=== PATIENT | female | born 2000 ===

== ENCOUNTER 2021-07-01 18:25 | Emergency (ER) | payer SELFPAY ==
[2021-07-01 20:06] VITALS: BP 126/69
--- NOTE | 2021-07-01 20:21 | Emergency Department Report ---
ED General Adult HPI - General Chief complaint: Skin/Abscess/Foreign Body Stated complaint: TAMPON WIPE STUCK Time Seen by Provider: 07/01/21 20:12 Source: patient Mode of arrival: Ambulatory Limitations: No Limitations - History of Present Illness Initial comments: 21-year-old female patient presents to the emergency department with complaints of a vaginal foreign body for 3 days. Patient states she ran out of tampons and attempted to recreate a tampon using a baby wipe. Patient attempted to extract the foreign body herself prior to arrival but was unsuccessful because she was unable to reach the object with her fingers. Denies fever, chills, abdominal pain, pelvic pain, vaginal bleeding, vaginal discharge. Denies all other complaints at this time. - Related Data Previous Rx's Medication Instructions Recorded Last Taken Type metroNIDAZOLE [Flagyl] 500 mg PO Q12HR 7 Days tab 07/01/21 Unknown Rx Allergies Allergy/AdvReac Type Severity Reaction Status Date / Time No Known Allergies Allergy Verified 07/01/21 20:06 ED Review of Systems ROS: Stated complaint: TAMPON WIPE STUCK Other details as noted in HPI Other: GENERAL: Negative for fever. CARDIOVASCULAR: Negative for chest pain. PULMONARY: Negative for shortness of breath. GASTROINTESTINAL: Negative for abdominal pain. GENITOURINARY: Positive for foreign body. MUSCULOSKELETAL: Negative for back pain. NEUROLOGICAL: Negative for headache. INTEGUMENTARY: Negative for rash. ED Past Medical Hx - Past Medical History Previous Medical History?: No - Surgical History Past Surgical History?: No - Social History Smoking Status: Never Smoker - Medications Home Medications: Home Medications Medication Instructions Recorded Confirmed Last Taken Type metroNIDAZOLE [Flagyl] 500 mg PO Q12HR 7 Days tab 07/01/21 Unknown Rx ED Physical Exam - General Limitations: No Limitations - Other Other exam information: General: Awake, appropriately interactive, no acute distress. Neck: Supple. Full range of motion intact. Cardiovascular: Normal peripheral perfusion. Pulmonary: No respiratory distress. Patient is speaking normally without use of accessory muscles. Skin: No apparent rashes or lesions. Neurological: No facial asymmetry. Speech is clear. Follows commands. Patient is alert and oriented. Musculoskeletal: Moves all four extremities spontaneously with normal range of motion. Psych: Cooperative. Appropriate mood and affect. Pelvic: Female respite provider (OCTAVIA Grady) present. Normal external inspection. Mul tiple white malodorous saturated foreign bodies in the vaginal canal with minimal bleeding and irritation to the vaginal sanders. ED Course Vital Signs 07/01/21 19:58 Temperature 98.5 F Pulse Rate 90 Respiratory 16 Rate Blood Pressure 126/69 O2 Sat by Pulse 99 Oximetry - Procedure Description Procedures done: Verbal consent was obtained from the patient. The site was identified. Hand hygiene was observed. Multiple vaginal foreign bodies were removed using a combination of manual extraction and forceps. Pelvic exam repeated to ensure removal of all foreign bodies post procedure. Patient tolerated well without complications. ED Medical Decision Making - Medical Decision Making Patient presents to emergency department with complaints of vaginal foreign body. Multiple white malodorous saturated foreign bodies were removed from the vaginal canal without complications. See procedure note for details. Patient will be discharged home with referral to assistant finance director and prescription for Flagyl. Emphasized the importance of refraining from inserting anything into the vaginal canal until otherwise instructed by assistant finance director. Patient expressed understanding and is agreeable to plan of care. Strict return precautions provided. Critical care attestation.: If time is entered above; I have spent that time in minutes in the direct care of this critically ill patient, excluding procedure time. ED Disposition Clinical Impression: Vaginal foreign body Qualifiers: Encounter type: initial encounter Qualified Code(s): T19.2XXA - Foreign body in vulva and vagina, initial encounter Disposition: HOME / SELF CARE / HOMELESS Is pt being admited?: No Does the pt Need Aspirin: No Condition: Stable Instructions: Vaginal Foreign Body, [id number] Additional Instructions: Take Flagyl with food as directed until complete. Do not consume any alcohol while taking this medication. Do not insert anything into the vaginal canal until otherwise instructed by assistant finance director. Follow-up with assistant finance director this week. Call tomorrow to schedule an appointment. See referral information below. Return to the emergency department immediately for new or worsening symptoms. Prescriptions: metroNIDAZOLE [Flagyl] 500 mg PO Q12HR 7 Days tab Referrals: [facility] [Provider Group] - 3-5 Days Time of Disposition: 21:01
== END 2021-07-01 21:53 | disposition home or self-care (01) ==
LOC: ED 18:25
DX: T19.2XXA Foreign body in vulva and vagina, initial encounter (principal); X58.XXXA Exposure to other specified factors, initial encounter; Y93.89 Activity, other specified; Y92.89 Other specified places as the place of occurrence of the external cause; Y99.8 Other external cause status
CPT/HCPCS: 99282; 99283